=== PATIENT | female | born 1955 | race Caucasian/White ===

== ENCOUNTER 2021-02-08 08:32 | Day surgery (SDC) | payer OTHER ==
[2021-02-07 10:43] LABS: Absolute Lymphocytes (CBC) 1.2 K/uL (0.7-4.9); Basophils % 0.5 % (0-1.3); Lymphocytes % 12.7 % (15.3-44.8); MPV 8.2 fL (7.6-11.3); RBC Red Blood Cell Count 3.77 M/uL (3.86-4.86)
[2021-02-07 11:08] LABS: Potassium 4.1 mmol/L (3.5-5.1)
--- NOTE | 2021-02-07 19:14 | EKG ---
Test Date: 2021-02-07 Test Time: 09:23:09 [place] Opener: BAIRON MEASUREMENT RESULTS: Intervals: Rate: 80 VT: 144 QRSD: 112 QT: 382 QTc: 440 [place]: P: 60 VT: 144 QRS: 19 T: -42 INTERPRETIVE STATEMENTS: Normal sinus rhythm Inferior infarct, age undetermined ST & T wave abnormality, consider lateral ischemia Abnormal ECG No previous ECG available for comparison Electronically Signed On 02-07-21 19:13:30 CDT by Doug Quesada
[2021-02-08] MEDS ORDERED: propofoL 200 MG/20 ML VIAL IV ONE ×2 (09:08→10:26)
[2021-02-08] MEDS ORDERED: FENTANYL CITR 100 MCG/2 ML ONE ×2 (09:08→09:39)
[2021-02-08] MEDS ORDERED: ONDANSETRON 4 MG/2 ML VIAL ONE ×2 (09:08→10:27)
[2021-02-08] MEDS ORDERED: LIDOCAINE 2% MPF 5 ML VIAL ONE ×2 (09:08→09:40)
[2021-02-08] MEDS ORDERED: MIDAZOLAM HCL 2 MG/2 ML INJ ONE ×2 (09:08→09:39)
[2021-02-08] MEDS ORDERED: NA CHLORIDE 0.9% 1,000 ML ONE (09:17)
[2021-02-08] MEDS ORDERED: CLINDAMYCIN 900MG/D5W 900 MG/50 ML IVPB IV ONE (09:17)
[2021-02-08] MEDS ORDERED: CELECOXIB 100 MG CAPSULE ONE (09:28)
[2021-02-08] MEDS ORDERED: ACETAMINOPHEN 500 MG TAB ONE (09:28)
[2021-02-08] MEDS ORDERED: BUPIVACAINE 0.25% PF 30 ML VIAL ONE (09:54)
[2021-02-08] MEDS ORDERED: KETOROLAC 30 MG/ML INJ ONE (10:26)
[2021-02-08] MEDS ORDERED: dexAMETHasone 4 MG/ML VIAL ONE (10:27)
[2021-02-08] MEDS ORDERED: LIDOCAINE 1% MPF 30 ML VIAL ONE (10:27)
--- NOTE | 2021-02-08 12:01 | RAD REPORT ---
EXAM DESCRIPTION: RAD - Ankle Right 2 View - 02/08/2021 11:54 am FINDINGS: There were 19 portable C-arm views obtained during fluoroscopic assisted placement of frac ture fixation hardware. No suspicious or unexpected findings. Imaging was performed in 3 sequences. Initial sequence had a fluoro time of 0.1 minutes with a 0.222 mGy cumulative dose. The second acquisition also was 0.1 minutes with a 0.120 mGy cumulative dose. Th e third acquisition was 0.3 minutes with a 0.336 mGy cumulative dose.
--- NOTE | 2021-02-08 12:02 | P.BOP ---
Preoperative diagnosis: right trimalleolar ankle fracture Postoperative diagnosis: same Primary procedure: ORIF right medial and lateral malleolus Estimated blood loss: 20 ccs Anesthesia: General Transferred to: Recovery Room Condition: Good
[2021-02-08 12:40] VITALS: O2SAT 98
[2021-02-08 13:27] VITALS: BP 129/53; TEMP 97.3
[2021-02-08] MEDS ORDERED: GLYCOPYRROLATE 0.2 MG/ML SYR ONE (14:21)
[2021-02-08] MEDS ORDERED: NEOSTIGMINE 1 MG/ML -5 ML ONE (14:22)
--- NOTE | 2021-02-08 22:38 | OP ---
Date of Procedure: 02/08/2021 Surgeon: Latrell Harmon MD Preoperative Diagnoses: Right ankle trimalleolar ankle fracture after fracture dislocation in a otilia ent with vascular difficulties and diabetes. Postoperative Diagnoses: Right ankle trimalleolar ankle fracture after fracture dislocation in a pat ient with vascular difficulties and diabetes. Procedure: Open reduction and internal fixation of medial and lateral malleolus. Estimated Blood Loss: 20 cc. Complications: No complications. Specimens: No pathology specimen sent. Indications For Operation: Ms. Meneses is a 65-year-old female who unfortunately suffers from diabetes who has had a dysvascular foot, unfortunately having a very recent great toe amputation for this bailee son by another physician. Unfortunately, she fell injuring her right lower extremity. She was seen and examined in the emergency room, where she was then reduced. She came to my office. She was agai n reduced and placed into a better padded splint, and risks, benefits, and alternatives to open reduc tion and internal fixation of the ankle had been discussed with her. She states she understands thin gs presented. She knows that given the very bad nature of her injury as well as her vascular status that this is a limb threatening injury, but we will do the best we can to avoid any complication. Lanie frederick says she understands things as presented and wishes to proceed. Description Of Procedure: The patient was taken to the operating room and placed in supine position. General anesthesia was obtained by the staff. Following this, a well-padded tourniquet was placed on superior right leg. The dressing for her previous toe amputation was then removed and the right l ower extremity than prepped and draped in usual sterile fashion for an open wound. A sterile glove w as then placed over the forefoot to isolate the great toe wound. Leg was then elevated, but not exsa nguinated. Tourniquet was raised. The medial side was addressed first and a standard incision was t aken down carefully through skin only, meticulous hemostasis being maintained using Bovie electrocaut larissa. Care was taken to extend the incision as long as need be to avoid undue tension on the skin. T he fracture was encountered. There was found to be 1 fairly major articular piece as well as 2 other pieces which appeared to be mostly associated with cortical avulsion fractures as seen typically a p eriosteal product. There did appear to be space for 1 pro cannulated screw and this was placed in a standard fashion, which appeared to actually reproduce the joint quite well. Unfortunately, there wa s a fairly large clear space from these avulsion fractures. A 3-0 Ethibond suture was then used in a nvholc-ow-huezs pattern and these 2 bony fragments which actually hold it down somewhat in a better reduced position. The periosteum also assisted in maintaining their position. Attention was then tu rned to the lateral aspect and a standard lateral incision was taken down carefully to skin and soft tissues. Meticulous hemostasis being maintained using Bovie electrocautery. This leads down to the fracture site. Fracture site was clean. There was found to be extremely long vertical fracture with again more distally having this periosteal avulsion type fracture fragments. Standard reduction dylon hniques did appear to do quite well as far as getting a fairly good reduction. The pieces were far t oo small to place any kind of lag screw and decision was made to bridge plate. It was then bridge pl ated both proximally and distally holding out as much length as possible. The wound was irrigated. Incisions made to place a supplemental syndesmotic type screw to help with the construct, which was d one without difficulty. After this, the ankle was observed under biplanar C-arm radiography. It armand ears to be fairly well reduced with the pieces in the best approximation as possible. Wound was then irrigated on both sides. Care was then taken to very carefully close the incision on both the media l and lateral aspect. The lateral side appeared to come together quite well. The medial side did rhoades ve some tension, but we did the best we could to avoid having any tension on the skin. Definitely, d id not pinch the skin or cause any trouble or trauma to it. There was obviously some concern about i ts vascularity. However, she was placed in extremely well-padded sterile dressing, as well as a posterior splint and view. She was awakened and taken to recovery room in good condition. There were no complications. SE/MODL Voice ID: [id number] Report ID: [id number]
== END 2021-02-08 13:35 | disposition home or self-care (01) ==
LOC: OR 08:32
PROVIDERS: ATTEND Orthopaedic Surgery
PROC: 0QSG04Z Reposition Right Tibia with Internal Fixation Device, Open Approach (ICD-10-PCS; 2021-02-08)
PROC: 0QSJ04Z Reposition Right Fibula with Internal Fixation Device, Open Approach (ICD-10-PCS; principal; 2021-02-08 10:30)
DX: S82.851A Displaced trimalleolar fracture of right lower leg, initial encounter for closed fracture (principal); E11.9 Type 2 diabetes mellitus without complications; K21.9 Gastro-esophageal reflux disease without esophagitis; I10 Essential (primary) hypertension; Z95.1 Presence of aortocoronary bypass graft; Z89.419 Acquired absence of unspecified great toe
CPT/HCPCS: 93005; 85025; 80048; 36415; 82947; 73600; 27792; 27766; J2704; J2250; J3010; J2710; J7030; J2405; J1100